=== PATIENT | female | born 1975 | race Caucasian/White ===

== ENCOUNTER 2016-09-26 11:24 | Emergency (ER) | payer BC, OTHER ==
[2016-09-26 11:51] VITALS: BP 118/75
--- NOTE | 2016-09-26 11:53 | UC ---
Respiratory Complaint HPI - HPI Summary HPI Summary: Two days of congestion and general illness. Now she also has a sore throat . Daughter has strep throat and has uri. - History of Current Complaint Chief Complaint: UCRespiratory Stated Complaint: CHEST COLD Time Seen by Provider: 09/26/16 11:43 Hx Last Menstrual Period: 09/23/16 ?: No Onset/Duration: Gradual Onset Timing: Constant Severity Initially: Mild Severity Currently: Moderate Character: Cough: Nonproductive Aggravating Factors: Nothing Alleviating Factors: Nothing Associated Signs And Symptoms: Positive: Fever, Chills, URI, Nasal Congestion. Negative: Dyspnea, Sinus Discomfort - Allergies/Home Medications Allergies/Adverse Reactions: Allergies Allergy/AdvReac Type Severity Reaction Status Date / Time seasonal allergy Allergy Congestion Uncoded 09/26/16 11:32 Home Medications: Home Medications SUMAtriptan TAB* [Imitrex TAB*] 1 tab PO ONCE PRN 09/26/16 [History Confirmed ] Topiramate [Topamax 50 mg tab] 1 tab PO BID 09/26/16 [History Confirmed 09/26/16 ] PMH/Surg Hx/FS Hx/Imm Hx Previously Healthy: Yes - Surgical History Surgical History: Yes Surgery Procedure, Year, and Place: rigth ankle surgery. cholecystectomy - Family History Known Family History: Positive: Other - no related uri family history. - Social History Occupation: Employed Full-time Alcohol Use: Rare Substance Use Type: None Smoking Status (MU): Never Smoked Tobacco Review of Systems All Other Systems Reviewed And Are Negative: Yes Physical Exam Triage Information Reviewed: Yes Appearance: Well-Appearing, No Pain Distress, Well-Nourished Vital Signs: Initial Vital Signs Temp 99.7 F 09/26/16 11:27 Pulse 90 09/26/16 11:27 Resp 18 09/26/16 11:27 BP 118/75 09/26/16 11:27 Pulse Ox 100 09/26/16 11:27 Vital Signs Reviewed: Yes Eye Exam: Normal Eyes: Positive: Conjunctiva Clear ENT: Positive: Normal ENT inspection, Pharyngeal erythema, Nasal congestion, TMs normal, Trismus, Muffled/hoarse voice. Negative: Nasal drainage, TM bulging , TM dull, TM red, Tonsillar swelling, Tonsillar exudate Neck exam: Normal Neck: Positive: Supple, No Lymphadenopathy. Negative: Nuchal Rigidity Respiratory Exam: Normal Respiratory: Positive: Chest non-tender, Lungs clear, Normal breath sounds, No respiratory distress, No accessory muscle use. Negative: Respiratory distress, Decreased breath sounds Cardiovascular Exam: Normal Cardiovascular: Positive: RRR, No Murmur Abdominal Exam: Normal Abdomen Description: Positive: Nontender, No Organomegaly Musculoskeletal Exam: Normal Musculoskeletal: Positive: Strength Intact, ROM Intact, No Edema Neurological Exam: Normal Neurological: Positive: Alert Psychological Exam: Normal Skin Exam: Normal UC Diagnostic Evaluation - Laboratory O2 Sat by Pulse Oximetry: 100 Respiratory Course/Dx - Course Course Of Treatment: Centor score low for strep throat. this ismore in line with viral uri. supportive measures described. - Differential Dx/Diagnosis Provider Diagnoses: uri Discharge - Discharge Plan Condition: Good Disposition: HOME Patient Education Materials: Upper Respiratory Infection (ED) Referrals: MARLYN Cody [Primary Care Provider] - If Needed
== END 2016-09-26 12:02 | disposition home or self-care (01) ==
LOC: UCCORT 11:24
DX: J06.9 Acute upper respiratory infection, unspecified (principal)
CPT/HCPCS: 99211; G0463